=== PATIENT | female | born 2000 | race African-American/Black ===

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

== ENCOUNTER 2022-03-28 15:56 | Outpatient (CLI) | payer OTHER ==
--- NOTE | 2022-03-28 17:47 | US ---
EXAMINATION TYPE: US venous doppler duplex LE LT DATE OF EXAM: 03/28/2022 5:11 PM COMPARISON: NONE CLINICAL HISTORY: 31 weeks preg, rule out left leg blood clot. SIDE PERFORMED: Left TECHNIQUE: The lower extremity deep venous system is examined utilizing real time linear array sonog melissa with graded compression, doppler sonography and color-flow sonography. VESSELS IMAGED: Common Femoral Vein Deep Femoral Vein Greater Saphenous Vein * Femoral Vein Popliteal Vein Small Saphenous Vein * Proximal Calf Veins (* superficial vessels) Grayscale, color doppler, spectral doppler imaging performed of the deep veins of the lower extremiti es. There is normal flow, compressibility, vascular waveforms. Left Leg: Negative for DVT IMPRESSION: No evidence of deep vein thrombosis of the left lower extremity.
[2022-03-28 17:48] VITALS: BP 98/49; PULSE 76; RESP 14; TEMP 97.9
--- NOTE | 2022-03-31 08:52 | P.MSEPDOC ---
Presenting Problems - Arrival Data Date of Arrival on Unit: 03/28/22 Time of Arrival on Unit: 16:04 Mode of Transport: Portable - Complaint OB-Reason for Admission/Chief Complaint: Other Comment: numbness in left leg x2 days and getting worse Medical History - Information : 2 Para: 1 Term: 0 : 1 Abortions: Spontaneous or Elective: 0 Number of Living Children: 1 - Gestational Age Gestational Age by TAYLOR (wks/days): 31 Weeks and 0 Days - History Complications: Prior Comment: 36 week induction/ for gastroschesis Review of Systems - Review of Systems Constitutional: No problems Breast: No problems ENT: No problems Cardiovascular: No problems Respiratory: No problems Gastrointestinal: No problems Genitourinary: No problems Musculoskeletal: Muscle weakness Neurological: No problems Skin: No problems Vital Signs - Temperature Temperature: 97.9 F Temperature Source: Temporal Artery Scan - Pulse Brachial Pulse Rate: 76 Pulse Assessment Method: Automatic Cuff - Respirations Respiratory Rate: 14 Oxygen Delivery Method: Room Air O2 Sat by Pulse Oximetry: 98 - Blood Pressure Right Arm Sitting Blood Pressure: 98/49 Blood Pressure Mean: 65 Blood Pressure Source: Automatic Cuff Medical Screen Scoring - Uterine Contractions Frequency From (mins): 0 Frequency To (mins): 0 Duration From (seconds): 0 Duration To (seconds): 0 - Assessment - Baby A Baseline FHR: 120 Heart Rate - NICHD Category: Category I (Normal) NST: Reactive Physician Notification - Physician Notified Physician Notified Date: 03/28/22 Physician Notified Time: 16:21 Physician: Jazmine Correa Order Received: Yes (doppler to rule out blood clot) - Notification Comment Comment: no blood clot present Maternal Triage Index - Non-Urgent/Priority 4 Non-Urgent Priority 4: Yes Criteria Met for Priority 4: complaint not related to labor, rule out blood clot in left leg Disposition - Disposition OB Disposition: Physician follow up in office, Triage, Discharge to home, Written follow up instructions reviewed Discharge Date: 03/28/22 Discharge Time: 17:30 I agree with the RN Medical Screening Exam: Yes Case reviewed; plan agreed upon as documented in EMR&OBIX.: Yes Diagnosis: RELATED CONDITIONS, UNSPECIFIED, THIRD TRIMESTER
== END 2022-03-28 17:30 | disposition home or self-care (01) ==
LOC: FBPOP 15:56
PROVIDERS: ATTEND Obstetrics & Gynecology
DX: O12.03 Gestational edema, third trimester (principal); Z3A.31 31 weeks gestation of pregnancy
CPT/HCPCS: 59025; 93971; G0463; 99213

== ENCOUNTER 2022-05-01 12:56 | Outpatient (CLI) | payer OTHER ==
[2022-05-01 15:08] VITALS: BP 114/56; PULSE 87; RESP 16; TEMP 97.8
--- NOTE | 2022-05-04 20:12 | P.MSEPDOC ---
Presenting Problems - Arrival Data Date of Arrival on Unit: 05/01/22 Time of Arrival on Unit: 14:16 Mode of Transport: Ambulatory - Complaint OB-Reason for Admission/Chief Complaint: Possible Onset of Labor Medical History - Information : 2 Para: 1 Term: 1 : 0 Abortions: Spontaneous or Elective: 0 Number of Living Children: 1 - Gestational Age Gestational Age by TAYLOR (wks/days): 35 Weeks and 6 Days - History Complications: Prior Review of Systems - Review of Systems Constitutional: No problems Breast: No problems ENT: No problems Cardiovascular: No problems Respiratory: No problems Gastrointestinal: No problems Genitourinary: No problems Musculoskeletal: No problems Neurological: No problems Skin: No problems Vital Signs - Temperature Temperature: 97.8 F Temperature Source: Temporal Artery Scan - Pulse Right Sitting Pulse Rate: 87 Pulse Assessment Method: Automatic Cuff - Respirations Respiratory Rate: 16 Oxygen Delivery Method: Room Air - Blood Pressure Right Arm Blood Pressure: 114/56 Blood Pressure Mean: 75 Blood Pressure Source: Automatic Cuff Medical Screen Scoring - Cervical Exam Dilation (cm): 3 Effacement (%): 50 Station: -2 Membranes: Intact - Uterine Contractions Intensity: Mild Resting: Soft to palpation - Assessment - Baby A Baseline FHR: 130 Heart Rate - NICHD Category: Category I (Normal) NST: Reactive Physician Notification - Physician Notified Physician Notified Date: 05/01/22 Physician Notified Time: 14:21 Physician: Jazmine Correa Order Received: Yes (d/c home) Maternal Triage Index - Prompt/Priority 3 Prompt Priority 3: Yes Criteria Met for Priority 3: irregular contractions, reactive nst, no change in cervix after 1 hour - Non-Urgent/Priority 4 Non-Urgent Priority 4: No Disposition - Disposition OB Disposition: Physician follow up in office, Discharge to home Discharge Date: 05/01/22 Discharge Time: 14:30 I agree with the RN Medical Screening Exam: Yes Case reviewed; plan agreed upon as documented in EMR&OBIX.: Yes Diagnosis: FALSE LABOR BEFORE 37 COMPLETED WEEKS OF GEST, THIRD TRI
== END 2022-05-01 14:30 | disposition home or self-care (01) ==
LOC: FBPOP 12:56
PROVIDERS: ATTEND Obstetrics & Gynecology
DX: O47.03 False labor before 37 completed weeks of gestation, third trimester (principal); Z3A.35 35 weeks gestation of pregnancy
CPT/HCPCS: 59025; G0463; 99213

== ENCOUNTER 2022-05-03 00:55 | Outpatient (CLI) | payer OTHER ==
[2022-05-03] MEDS: LACTATED RINGERS 1,000 ML IV SCH ×2 (01:30→02:15)
[2022-05-03 01:51] LABS: Appearance,Urine Clear (Clear); Bilirubin,Urine Negative (Negative); Blood,Urine Negative (Negative); Color,Urine Light Yellow; Glucose,Urine (UA) Negative (Negative); Ketones,Urine Negative (Negative); Leukocyte Esterase,Urine Negative (Negative); Nitrite,Urine Negative (Negative); PH, Urine 6.5 (5.0-8.0); Protein,Urine Negative (Negative); Specific Gravity,Urine 1.011 (1.001-1.035); Urobilinogen,Urine <2.0 mg/dL (<2.0)
[2022-05-03 03:44] VITALS: BP 118/56; PULSE 87; RESP 18; TEMP 97.1
--- NOTE | 2022-05-04 20:14 | P.MSEPDOC ---
Presenting Problems - Arrival Data Date of Arrival on Unit: 05/03/22 Time of Arrival on Unit: 00:55 Mode of Transport: Wheelchair - Complaint OB-Reason for Admission/Chief Complaint: Possible Onset of Labor Comment: cx x2hrs Medical History - Information : 2 Para: 1 Term: 1 : 0 Abortions: Spontaneous or Elective: 0 Number of Living Children: 1 - Gestational Age Gestational Age by TAYLOR (wks/days): 36 Weeks and 1 Days - History Complications: Prior Review of Systems - Review of Systems Constitutional: No problems Breast: No problems ENT: No problems Cardiovascular: No problems Respiratory: No problems Gastrointestinal: No problems Genitourinary: No problems Musculoskeletal: No problems Neurological: No problems Skin: No problems Vital Signs - Temperature Temperature: 97.1 F Temperature Source: Temporal Artery Scan - Pulse Pulse Oximetery Pulse Rate: 87 Pulse Assessment Method: Pulse Oximetry - Respirations Respiratory Rate: 18 Oxygen Delivery Method: Room Air O2 Sat by Pulse Oximetry: 99 - Blood Pressure Right Arm Blood Pressure: 118/56 Blood Pressure Mean: 76 Blood Pressure Source: Automatic Cuff Medical Screen Scoring - Cervical Exam Dilation (cm): 3.5 Effacement (%): 50 Station: -2 - Uterine Contractions Frequency From (mins): 2 Frequency To (mins): 7 Duration From (seconds): 30 Duration To (seconds): 70 Intensity: Mild Resting: Soft to palpation - Assessment - Baby A Baseline FHR: 125 Heart Rate - NICHD Category: Category I (Normal) NST: Reactive Physician Notification - Physician Notified Physician Notified Date: 05/03/22 Physician Notified Time: 01:19 Physician: Mike Norman New Order Received: Yes - Notification Comment Comment: 0119-Dr. Norman called, report given on maternal and status, c/o. contractions and is a RCS. NST is reactive, cx every 3mins, SVE 3.5/50/-2 (SVE 3cm 2. days ago). Orders to send a UA, start an IV, and give a 1L bolus of LR. Call back with. results. 0210-Dr. Norman called with update, UA came back clean, pain is not improved. after 1L LR. Orders to give 1 more liter of LR and recheck cervix again in 1hr. Discharge home if cervix is still unchanged. Maternal Triage Index - Maternal Triage Index Presenting for scheduled procedure w/no complaint: No - Stat/Priority 1 Stat Priority 1: No - Urgent/Priority 2 Urgent Priority 2: Yes Provider Notified: Mike Norman Provider Notified Time: 01:19 Criteria Met for Priority 2: 36 1/7 wks, RCS, cx every 2-7mins Disposition - Disposition OB Disposition: Discharge to home Discharge Date: 05/03/22 Discharge Time: 03:15 I agree with the RN Medical Screening Exam: Yes Physician's MSE Comment: I have neither seen nor examined the patient. Case reviewed; plan agreed upon as documented in EMR&OBIX.: Yes Diagnosis: RELATED CONDITIONS, UNSPECIFIED, THIRD TRIMESTER
== END 2022-05-03 03:15 | disposition home or self-care (01) ==
LOC: FBPOP 00:55
PROVIDERS: ATTEND Obstetrics & Gynecology
DX: O75.89 Other specified complications of labor and delivery (principal); Z3A.36 36 weeks gestation of pregnancy
CPT/HCPCS: 59025; 96360; 81003; G0463; 99213

== ENCOUNTER 2022-05-07 18:45 | Inpatient (IN) | payer OTHER ==
[2022-05-07] MEDS ORDERED: CITRIC ACID-SODIUM CITRATE 15 ML CUP PO ONE (19:17)
[2022-05-07] MEDS: LACTATED RINGERS 1,000 ML IV SCH ×2 (19:40→22:16)
[2022-05-07 19:42] LABS: Basophils % (A) 1 %; Eosinophils # (A) 0.1 k/uL (0-0.7); Eosinophils % (A) 2 %; HCT 27.4 % (34.0-46.0); HGB 8.8 gm/dL (11.4-16.0); Hypochromasia Slight; Lymphocytes # (A) 1.3 k/uL (1.0-4.8); Lymphocytes % (A) 16 %; MCH 24.2 pg (25.0-35.0); MCHC 32.3 g/dL (31.0-37.0); MCV 74.9 fL (80.0-100.0); Mean Platelet Volume 8.9; Microcytosis Slight; Monocytes # (A) 0.8 k/uL (0-1.0); Monocytes % (A) 10 %; Neutrophils # (A) 5.4 k/uL (1.3-7.7); Neutrophils % (A) 70 %; Platelet Count 190 k/uL (150-450); Poikilocytosis Slight; RBC 3.65 m/uL (3.80-5.40); RDW 13.8 % (11.5-15.5); WBC 7.8 k/uL (4.0-11.0)
--- NOTE | 2022-05-07 19:44 | P.HPOB ---
History of Present Illness H&P Date: 05/07/22 Chief Complaint: 36-5/7 weeks, previous , spontaneous rupture of me mbranes the patient is a 21-year-old 4 para 10-1 admitted at 36-5/7 weeks as established by last menstrual period and confirmed by second trimester ultrasound. She is admitted with documented spontaneous rupture of membranes of clear fluid and reports that she has been trickling since last evening, approximately 23 hours ago. Her has been uncomplicated. She does carry a history of a previous section done for an with gastroschisis and has requested a repeat section with tubal ligation and signed consent to that effect in the office. On labor and delivery, all signs reassuring with a category 1 heart rate tracing. Group B strep status is negative. Obstetrical history: 4 para 10-1 with 2 early losses and 1 term section done for an with gastroschisis. Current statistics are listed in history present illness. EDC of 05/26/2022 was established by last menstrual period and confirmed by second trimester ultrasound. Laboratory workup demonstrates a blood type of O+ with a negative antibody screen. Rubella status is immune. Remainder of the laboratory workup was within normal limits. One hour Glucola was normal and group B strep status is not yet been reported. Gynecologic history: Unremarkable with no history of any infections to include STDs. Review of Systems review of systems is confined to history of present illness. Past Medical History Past Medical History: No Reported History History of Any Multi-Drug Resistant Organisms: None Reported Past Surgical History: No Surgical Hx Reported Smoking Status: Former smoker Medications and Allergies Home Medications Medication Instructions Recorded Confirmed Type Vit No.179/Iron/Folic 1 tab PO DAILY 05/01/22 05/07/22 History [ Tablet] Allergies Allergy/AdvReac Type Severity Reaction Status Date / Time No Known Allergies Allergy Verified 05/07/22 19:16 Exam Vital Signs Temp Pulse Resp BP Pulse Ox 05/07/22 19:08 97.8 F 110 H 18 115/67 98 Intake and Output 05/07/22 05/07/22 05/07/22 06:59 14:59 22:59 Other: Weight 66.224 kg in general, this is a well-developed, well-nourished female in no acute distress. Her heart has a regular rhythm and rate without murmur. Her lungs are clear to auscultation bilaterally in all erickson.her abdomen is gravid, nondistended, has normal active bowel sounds, soft, nontender, and without any palpable masses aside from uterine fundus. Her extremities are without any cyanosis, clubbing, or edema and are nontender to palpation bilaterally. Digital cervical examination demonstrates her cervix to be 3 cm dilated, 50% effaced, with vertex in presentation at -2 station. Spontaneous rupture of membranes has been confirmed. Assessment and Plan (1) 36 to 37 weeks gestation of Current Visit: Yes Status: Acute Code(s): JAN5056 - SNOMED Code(s): 893380188 (2) Previous section Current Visit: Yes Status: Acute Code(s): Z98.891 - HISTORY OF UTERINE SCAR FROM PREVIOUS SURGERY SNOMED Code(s): 295400751 (3) Spontaneous rupture of membranes Current Visit: Yes Status: Acute Code(s): VUT0103 - SNOMED Code(s): 728432019 (4) Prolonged rupture of membranes Current Visit: Yes Status: Acute Code(s): O42.90 - KELSEY ROM, 7TH0 BETW RUPT & ONST LABR, UNSP WEEKS OF GEST SNOMED Code(s): 65025252 Plan: given the patient's age at 21 years old and the lack of clarity as to whether insurance will cover a tubal ligation for someone her age, we will abandoned the idea intraoperative tubal ligation and seek the answers those questions in the state. We will proceed to the operating room for repeat low transverse section. The risks and complications the procedure been thoroughly discussed and the patient has understood and agreed to proceed.
[2022-05-07] MEDS ORDERED: MORPHINE SULFATE (PF) 0.3 MG/0.3 ML SYR ONE (20:05)
[2022-05-07] MEDS ORDERED: NALBUPHINE 10 MG/ML (1 ML AMP) ONE (20:05)
[2022-05-07] MEDS ORDERED: PHENYLEPHRINE-0.9% NACL SYG 1,000 MCG/10 ML SYRINGE ONE (20:05)
[2022-05-07] MEDS ORDERED: ONDANSETRON 4 MG/2 ML VIAL ONE (20:05)
[2022-05-07] MEDS ORDERED: KETOROLAC 15 MG/ML 1 ML VIAL ONE (20:05)
[2022-05-07] MEDS ORDERED: LANOLIN CREAM 5 GM TUBE TOPICAL PRN (21:13)
[2022-05-07] MEDS ORDERED: METOCLOPRAMIDE 5 MG/ML 2 ML VIAL IVP PRN (21:13)
[2022-05-07] MEDS ORDERED: diphenhydrAMINE 25 MG CAP PO PRN (21:13)
[2022-05-07] MEDS ORDERED: NALOXONE 0.4 MG/ML 1 ML VIAL IV PRN (21:13)
[2022-05-07] MEDS ORDERED: SIMETHICONE 80 MG CHEWABLE PO PRN (21:13)
[2022-05-07] MEDS ORDERED: ONDANSETRON 4 MG/2 ML VIAL IVP PRN (21:13)
[2022-05-07] MEDS ORDERED: diphenhydrAMINE 50 MG CAP PO PRN (21:13)
[2022-05-07] MEDS ORDERED: KETOROLAC 15 MG/ML 1 ML VIAL IVP PRN (21:13)
[2022-05-07] MEDS ORDERED: ZOLPIDEM 5 MG TAB PO PRN (21:13)
[2022-05-07] MEDS ORDERED: diphenhydrAMINE 50 MG/ML 1 ML VIAL IVP PRN ×2 (21:13)
[2022-05-07 21:14] LABS: Appearance,Urine Clear (Clear); Bilirubin,Urine Negative (Negative); Blood,Urine Negative (Negative); Color,Urine Yellow; Glucose,Urine (UA) Trace (Negative); Ketones,Urine Negative (Negative); Leukocyte Esterase,Urine Small (Negative); Mucus,Urine Many /hpf; Nitrite,Urine Negative (Negative); PH, Urine 6.5 (5.0-8.0); Protein,Urine 1+ (Negative); Specific Gravity,Urine 1.023 (1.001-1.035); Squamous Epithelial Cell,Urine 4 /hpf (0-4); Urobilinogen,Urine <2.0 mg/dL (<2.0); WBC,Urine 6 /hpf (0-5)
[2022-05-07] MEDS ORDERED: OXYTOCIN 30 UNITS/500 ML NS 30 UNIT in SALINE 1 500ML.BAG IV SCH (21:15)
--- NOTE | 2022-05-07 21:20 | P.OP ---
Date of Procedure: 05/07/22 Preoperative Diagnosis: #1. 36-5/7 weeks, previous sectionrequesting repeat, spontaneous rupture of membranes#2. Prolonged rupture of membranes Postoperative Diagnosis: same Procedure(s) Performed: #1. Repeat low transverse section Anesthesia: spinal Surgeon: Mike Norman [employer]andem [employer] Roller #1: Lien Paul Estimated Blood Loss (ml): 500 IV fluids (ml): 1,000 Urine output (ml): 100 Pathology: other (placenta) Condition: stable Disposition: floor Operative Findings: see dictated history and physical for preop decision making. The patient was taken the operating room where she was delivered of a viable 6 lbs. 2 oz. baby girl with Apgars of 8 at 1 minute and 9 at 5 minutes delivered in the occiput anterior position. The placenta was delivered manually, intact, and grossly normal with a grossly normal three-vessel cord. The uterus, tubes, and ovaries were entirely normal to inspection. There was a moderate amount of scarring above the fascia and through the fascia and rectus muscles. The uterus was otherwise relatively uninvolved in any scar tissue. Description of Procedure: the patient was prepped and draped in usual fashion after spinal anesthesia was administered by the anesthesiologist. A Pfannenstiel incision was made through pre-existing scar and extended into the abdominal cavity without difficulty though there was some moderate scarring above the fascia and through the fascia and rectus muscles. The bladder peritoneum was somewhat elevated and therefore was elevated, incised, and reflected distally. A 2 cm incision was made in the transverse plane of the lower uterine segment to enter the uterus at which time clear fluid was again seen. The incision was extended in both directions using the bandage scissors. The head was delivered up and through the incision where the nose and mouth were thoroughly suctioned. The remainder of the infant was delivered onto the field where the cord was doubly clamped, cut, and the passed for resuscitative measures with weight and Apgars as noted above. A segment of cord was doubly clamped, cut, and set aside should cord gases become necessary. The placenta was delivered manually and intact as noted above. The uterus was exteriorized and the interior cavity of the uterus swept of any remaining placental or membranous fragments. The margins of the incision were grasped with Krause clamps and the incision closed in 2 layers. The first layer was a running locking stitch of 0 chromic catgut followed by a running imbricating layer of 0 chromic catgut, each from margin to margin. There was some ongoing bleeding at the right angle the incision which was made hemostatic both with the Bovie and with a [id number] stitch of 0 chromic catgut. The posterior cul-de-sac was suctioned with a guard and the uterine and ovarian findings were normal as noted above. The uterus was replaced within the abdominal cavity and the gutters swept of any remaining blood, fluid, or clot. The incision was reexamined and any further small points of bleeding were made hemostatic with the Bovie. Once hemostasis was established, the parietal peritoneum was loosely reapproximated in the layer of muscles examined and made hemostatic with the Bovie. The fascia was closed with 2 running stitches of 0 Vicryl proceeding from the lateral margins to the midpoint. The subcutaneous tissues were irrigated, made hemostatic with the Bovie, and reapproximated with a running stitch of 30 plain catgut. The skin was reapproximated with a running subcuticular stitch of 4-0 Vicryl followed by half-inch Steri-Strips placed with Mastisol. Estimated blood loss for the case is presently 500 mL. There were no complications. All sponge, instrument, and needle counts were correct. Both mother and are resting comfortably in recovery.
[2022-05-08] MEDS: ACETAMINOPHEN TAB 500 MG TAB PO SCH ×4 (05:29→21:53)
[2022-05-08] MEDS: LACTATED RINGERS 1,000 ML IV SCH ×4 (05:33→16:10)
[2022-05-08] MEDS: IBUPROFEN 600 MG TAB PO SCH ×3 (05:35→19:42)
[2022-05-08 06:45] LABS: Basophils % (A) 0 %; Eosinophils # (A) 0.1 k/uL (0-0.7); Eosinophils % (A) 2 %; HCT 24.6 % (34.0-46.0); HGB 7.9 gm/dL (11.4-16.0); Hypochromasia Moderate; Lymphocytes # (A) 1.3 k/uL (1.0-4.8); Lymphocytes % (A) 15 %; MCH 24.4 pg (25.0-35.0); MCHC 32.2 g/dL (31.0-37.0); MCV 75.7 fL (80.0-100.0); Mean Platelet Volume 9.7; Monocytes # (A) 0.6 k/uL (0-1.0); Monocytes % (A) 7 %; Neutrophils # (A) 6.8 k/uL (1.3-7.7); Neutrophils % (A) 76 %; Platelet Count 164 k/uL (150-450); Poikilocytosis Slight; RBC 3.24 m/uL (3.80-5.40)
[2022-05-08] MEDS: SENNOSIDES-DOCUSATE SODIUM 1 EACH TAB PO SCH ×2 (07:44→20:01)
--- NOTE | 2022-05-08 08:00 | P.PN ---
Subjective Progress Note Date: 05/08/22 Principal diagnosis: Postoperative day #1 Slept well. Minimal pain. Minimal lochia. No complaints Objective - Vital Signs Vital signs: Vital Signs Temp 98.1 F 05/08/22 07:49 Pulse 75 05/08/22 07:49 Resp 18 05/08/22 07:49 BP 102/61 05/08/22 07:49 Pulse Ox 98 05/08/22 07:49 FiO2 Intake & Output 05/07/22 05/08/22 05/08/22 18:59 06:59 18:59 Output Total 3567 Balance -3567 Weight 66.224 kg Output: Urine 1400 Uretheral (Santos) 200 Estimated Blood Loss 2000 Output, Quantitative 167 Blood Loss - Constitutional General appearance: Present: average body habitus, cooperative - EENT Eyes: Present: PERRLA ENT: Present: hearing grossly normal - Respiratory Respiratory: bilateral: CTA - Cardiovascular Rhythm: regular - Gastrointestinal Gastrointestinal Comment(s): Incision clean and dry, intact, Steri-Strips applied. Fundus firm, midline, symmetric, 18 week size. General gastrointestinal: Present: normal bowel sounds - Integumentary Integumentary: Present: normal - Neurologic Neurologic: Present: CNII-XII intact - Musculoskeletal Musculoskeletal: Present: gait normal, strength equal bilaterally - Psychiatric Psychiatric: Present: A&O x's 3, appropriate affect, intact judgment & insight - Labs CBC & Chem 7: 05/08/22 06:26 Labs: Abnormal Lab Results - Last 24 Hours (Table) 05/07/22 05/07/22 05/08/22 Range/Units 19:20 19:35 06:26 RBC 3.65 L 3.24 L (3.80-5.40) m/uL Hgb 8.8 L 7.9 L (11.4-16.0) gm/dL Hct 27.4 L 24.6 L (34.0-46.0) % MCV 74.9 L 75.7 L (80.0-100.0) fL MCH 24.2 L 24.4 L (25.0-35.0) pg Urine Protein 1+ H (Negative) Urine Glucose (UA) Trace H (Negative) Ur Leukocyte Esterase Small H (Negative) Urine WBC 6 H (0-5) /hpf Urine Mucus Many H (None) /hpf Assessment and Plan Assessment: Doing well first postoperative day Plan: Ferrous sulfate twice daily for chronic anemia. Advanced diet and activity. Continue postoperative care. Likely discharge home tomorrow. Time with Patient: Less than 30
--- NOTE | 2022-05-08 08:52 | P.PN ---
Progress Note - Text Progress Note Date: 05/08/22 ([id number]) Anesthesia Postop day 1 Subjective: Status Post section with Duramorph. Patient seen and examined. Doing well without complaint. VAS 0. Denies nausea vomiting or pruritus. Afebrile. Gross lower extremity strength intact. Without apparent anesthetic complications. Objective: Vital signs reviewed Heart: Regular Rate Lungs: Good chest excursion Abdomen: Appears nondistended Assessment: Status post with Duramorph postop day 1 Plan: Continue current care with your medical management. Anticipated and the Duramorph around midnight tonight, you may see increased pain needs around this time.
[2022-05-08 16:13] VITALS: RESP 16
[2022-05-08] MEDS: FERROUS SULFATE 325 MG TAB PO SCH (17:14)
[2022-05-09] MEDS: ACETAMINOPHEN TAB 500 MG TAB PO SCH ×2 (02:47→08:35)
[2022-05-09] MEDS: IBUPROFEN 600 MG TAB PO SCH ×2 (04:25→05:31)
--- NOTE | 2022-05-09 07:49 | P.DS ---
Providers Date of admission: 05/07/22 19:20 Expected date of discharge: 05/09/22 Attending physician: Jazmine Correa Primary care physician: Jazmine Correa [facility] Course: This is a 21-year-old female 4 para 10-1 EDC 05/30/2022 at 36-5/7 weeks who presented with spontaneous amniorrhexis at home, clear fluid, in early labor. Plan has been for repeat section with tubal ligation. Please see dictated history and physical for details. Patient underwent a repeat low transverse section and tubal ligation without issue. Ovaries appeared normal to inspection. Eccles did well with a nuchal cord 1, liveborn female infant, scores 8 and 9 at one and 5 minutes respectively. weighed 2770 g or 6 lbs. 2 oz. Please see dictated operative note for details. This morning the patient is doing well. She is voiding, ambulating, passing flatus without difficulty. Vital signs are stable and she is afebrile. Incision is clean and dry, intact, Steri-Strips applied. Eccles infant is doing well. Patient is judged to be in very good condition for discharge home. She'll follow-up with me in the office in 2 weeks for incision check. She will use [id number] Advil or Aleve, or Motrin as needed for pain. She will call with any fevers shakes or chills, foul smelling or copious lochia, with the passage of large blood clots, or indeed with any concerns or difficulties. She is reminded no intercourse, tampons or douching. No heavy lifting, no driving, call with any issues or concerns. Assessment: Doing well second postoperative day Patient Condition at Discharge: Good Plan - Discharge Summary Discharge Rx Participant: No New Discharge Prescriptions: No Action Vit No.179/Iron/Folic [ Tablet] 1 tab PO DAILY Discharge Medication List Vit No.179/Iron/Folic [ Tablet] 1 tab PO DAILY 05/01/22 [History] Follow up Appointment(s)/Referral(s): Jazmine Correa MD [Primary Care Provider] - 2 Weeks Discharge Disposition: HOME SELF-CARE
[2022-05-09] MEDS: SENNOSIDES-DOCUSATE SODIUM 1 EACH TAB PO SCH (08:36)
[2022-05-09] MEDS: FERROUS SULFATE 325 MG TAB PO SCH (08:36)
[2022-05-09 08:44] VITALS: BP 93/53; PULSE 65; TEMP 97.7
== END 2022-05-09 11:05 | disposition home or self-care (01) | DRG 788 ==
LOC: FBPOP 18:45 → 4FBP 19:20
PROVIDERS: ADMIT Obstetrics & Gynecology; ATTEND Obstetrics & Gynecology
PROC: 10D00Z1 Extraction of Products of Conception, Low, Open Approach (ICD-10-PCS; principal; 2022-05-07 20:24)
DX: O34.211 Maternal care for low transverse scar from previous cesarean delivery (principal); O42.913 Preterm premature rupture of membranes, unspecified as to length of time between rupture and onset of labor, third trimester; O69.81X0 Labor and delivery complicated by cord around neck, without compression, not applicable or unspecified; O99.02 Anemia complicating childbirth; D64.9 Anemia, unspecified; Z87.891 Personal history of nicotine dependence; Z28.310 Unvaccinated for COVID-19; Z3A.36 36 weeks gestation of pregnancy; Z37.0 Single live birth
CPT/HCPCS: 59025; 81001; 85025; 86850; 86900; 86901; 99213

== ENCOUNTER 2023-02-02 07:48 | Outpatient (CLI) | payer OTHER ==
[2023-02-02 08:53] VITALS: BP 104/53; PULSE 74; RESP 16; TEMP 97.8
--- NOTE | 2023-02-05 13:01 | P.MSEPDOC ---
Presenting Problems - Arrival Data Date of Arrival on Unit: 02/02/23 Time of Arrival on Unit: 08:10 Mode of Transport: Ambulatory - Complaint OB-Reason for Admission/Chief Complaint: Rule Out SROM, Decreased Movement Medical History - Information : 3 Para: 2 : 1 Abortions: Spontaneous or Elective: 0 Number of Living Children: 2 - Gestational Age Gestational Age by TAYLOR (wks/days): 20 Weeks and 5 Days Review of Systems - Review of Systems Constitutional: No problems Breast: No problems ENT: No problems Cardiovascular: No problems Respiratory: No problems Gastrointestinal: No problems Genitourinary: No problems Musculoskeletal: No problems Neurological: No problems Skin: No problems Vital Signs - Temperature Temperature: 97.8 F Temperature Source: Temporal Artery Scan - Pulse Right Apical Pulse Rate: 74 Pulse Assessment Method: Auscultation - Respirations Respiratory Rate: 16 Oxygen Delivery Method: Room Air O2 Sat by Pulse Oximetry: 99 - Blood Pressure Right Arm Blood Pressure: 104/53 Blood Pressure Mean: 70 Blood Pressure Source: Automatic Cuff Medical Screen Scoring - Uterine Contractions Intensity: Absent - Assessment - Baby A Baseline FHR: 135 Heart Rate - NICHD Category: Category I (Normal) NST: Reactive Physician Notification - Physician Notified Physician Notified Date: 02/02/23 Physician Notified Time: 08:40 Physician: MATTHEW Kelly Order Received: Yes - Notification Comment Comment: home with instructions Maternal Triage Index - Non-Urgent/Priority 4 Non-Urgent Priority 4: Yes Criteria Met for Priority 4: amnisure neg. Disposition - Disposition OB Disposition: Physician follow up in office, Discharge to home, Written follow up instructions reviewed Discharge Date: 02/02/23 Discharge Time: 08:45 I agree with the RN Medical Screening Exam: Yes Physician's MSE Comment: I have neither seen nor examined the patient Case reviewed; plan agreed upon as documented in EMR&OBIX.: Yes Diagnosis: RELATED CONDITIONS, UNSPECIFIED, SECOND TRIMESTER
== END 2023-02-02 08:45 | disposition home or self-care (01) ==
LOC: FBPOP 07:48
PROVIDERS: ATTEND Obstetrics & Gynecology
DX: O26.892 Other specified pregnancy related conditions, second trimester (principal); Z3A.20 20 weeks gestation of pregnancy
CPT/HCPCS: 99213

== ENCOUNTER 2023-02-02 18:10 | Outpatient (CLI) | payer OTHER ==
[2023-02-02 18:31] LABS: Glucose,Whole Blood 137 mg/dL (70-110)
[2023-02-02 19:50] VITALS: BP 100/63; PULSE 83; RESP 16; TEMP 97
--- NOTE | 2023-02-03 08:45 | P.MSEPDOC ---
Presenting Problems - Arrival Data Date of Arrival on Unit: 02/02/23 Time of Arrival on Unit: 18:15 Mode of Transport: Wheelchair - Complaint OB-Reason for Admission/Chief Complaint: Headache, Observation/Evaluation, Other Comment: assess fht's. bp, blood sugar and assess pt. Medical History - Information : 3 Para: 2 Term: 1 : 1 Abortions: Spontaneous or Elective: 0 Number of Living Children: 2 - Gestational Age Gestational Age by TAYLOR (wks/days): 20 Weeks and 5 Days - History Complications: Prior , Other Comment: pt fell after blanking out while grocery shopping Review of Systems - Review of Systems Constitutional: No problems Breast: No problems ENT: No problems Cardiovascular: No problems Respiratory: No problems Gastrointestinal: No problems Genitourinary: No problems Musculoskeletal: No problems Neurological: No problems Skin: No problems Comment: bruise on rt forearm, states has a bad headache, dizzy and tired Vital Signs - Temperature Temperature: 97.0 F Temperature Source: Temporal Artery Scan - Pulse Right Radial Pulse Rate: 83 Pulse Assessment Method: Automatic Cuff - Respirations Respiratory Rate: 16 Oxygen Delivery Method: Room Air O2 Sat by Pulse Oximetry: 99 - Blood Pressure Right Arm Blood Pressure: 100/63 Blood Pressure Mean: 75 Blood Pressure Source: Automatic Cuff Medical Screen Scoring - Uterine Contractions Intensity: Absent - Assessment - Baby A Baseline FHR: 140 Heart Rate - NICHD Category: Category I (Normal) NST: Reactive Physician Notification - Physician Notified Physician Notified Date: 02/02/23 Physician Notified Time: 18:50 Physician: Jazmine Correa New Order Received: Yes (to be seen in er. obst. cleared. call for appt this week in office) Maternal Triage Index - Urgent/Priority 2 Urgent Priority 2: Yes Provider Notified: Jazmine Correa Provider Notified Time: 18:55 Criteria Met for Priority 2: pt fell in grocery store after blaking out. then backwards and hit head again. dizzyness and headache. assessed baby . fht's 140's . vs stable, bs 137. to e.r. to be evaluated Disposition - Disposition OB Disposition: Transfer to other dept./facility, Written follow up instructions reviewed Transferred to:: er Discharge Date: 06/16/23 Discharge Time: 18:55 I agree with the RN Medical Screening Exam: Yes Case reviewed; plan agreed upon as documented in EMR&OBIX.: Yes Diagnosis: HEADACHE * DO NOT USE *
== END 2023-02-02 19:00 | disposition home or self-care (01) ==
LOC: FBPOP 18:10
PROVIDERS: ATTEND Obstetrics & Gynecology
DX: O26.892 Other specified pregnancy related conditions, second trimester (principal); Z3A.20 20 weeks gestation of pregnancy
CPT/HCPCS: 99213

== ENCOUNTER 2023-02-02 19:02 | Emergency (ER) | payer OTHER ==
[2023-02-02 19:17] VITALS: RESP 18; TEMP 98.3
[2023-02-02] MEDS ORDERED: ACETAMINOPHEN TAB 325 MG TAB PO STA (19:41)
[2023-02-02] MEDS ORDERED: SODIUM CHLORIDE 0.9% 1,000 ML IV ONE (19:41)
--- NOTE | 2023-02-02 19:48 | ED ---
General Adult HPI - General Chief complaint: Fall Stated complaint: fall, 20 wks preg Time Seen by Provider: 02/02/23 19:25 Source: patient, RN notes reviewed Mode of arrival: wheelchair Limitations: no limitations - History of Present Illness Initial comments: 22-year-old -[place] female who is approximately 20 weeks presents the emergency department with a chief complaint of syncope. Patient reports that she was at the grocery store when she was pushing a cart and fell forward. She reports hitting her head on the cart. She reports that she woke up with someone holding her feet up. She is unsure for how long she lost consciousness. She has never had a history of this before. She is reporting feeling dizzy and having a headache at this time. Denies history of seizures or diabetes. Denies chest pain, shortness of breath, vision changes, vision loss, nausea, vomiting. She reports that she did eat something earlier today. - Related Data Home Medications Medication Instructions Recorded Confirmed Vit No.179/Iron/Folic 1 tab PO DAILY 05/01/22 02/02/23 [ Tablet] Allergies Allergy/AdvReac Type Severity Reaction Status Date / Time No Known Allergies Allergy Verified 02/02/23 19:17 Review of Systems ROS Statement: Those systems with pertinent positive or pertinent negative responses have been documented in the HPI. ROS Other: All systems not noted in ROS Statement are negative. Past Medical History Past Medical History: No Reported History History of Any Multi-Drug Resistant Organisms: None Reported Past Surgical History: Section Additional Past Surgical History / Comment(s): 2020 Past Anesthesia/Blood Transfusion Reactions: No Reported Reaction Past Psychological History: Anxiety, Depression Smoking Status: Former smoker Past Alcohol Use History: None Reported Past Drug Use History: None Reported - Past Family History Mother Additional Family Medical History / Comment(s): Heart Disease, ADHD General Exam - General Exam Comments Initial Comments: General: Alert, in no acute distress Head: atraumatic normocephalic. Eyes PERRL, EOMI intact, mucous membranes moist Respiratory: Lungs clear to auscultation bilaterally Cardiovascular: Heart rate regular rate and rhythm Abdominal: Soft without guarding or rebound Extremities: Normal inspection with full range of motion and normal capillary refill Neuroogic: alert and oriented 3, CN II-XII intact, able to ambulate with steady gait Skin: warm dry and intact with normal color Limitations: no limitations Course Vital Signs 02/02/23 02/02/23 19:13 23:40 Temperature 98.3 F Pulse Rate 78 85 Respiratory 18 18 Rate Blood Pressure 101/64 91/52 O2 Sat by Pulse 100 99 Oximetry - Reevaluation(s) Reevaluation #1: 02/02/23 23:10 Patient reevaluated. Patient still unable to provide urine sample at this time. Patient is requesting to be discharged home at this time. EKG Findings - EKG Comments: EKG Findings:: I interpreted the following: EKG performed at 19:52 rate 82 bpm normal sinus rhythm. AL interval 138, QRS duration 89, QT/QTc 367/406 Medical Decision Making - Medical Decision Making Was pt. sent in by a medical professional or institution (GRETA Burdick, [facility], urgent care, hospital, or skilled nursing...) When possible be specific @ -[No] Did you speak to anyone other than the patient for history (EMS, parent, family, police, friend...)? What history was obtained from this source @ -[No] Did you review nursing and triage notes (agree or disagree)? Why? @ -[I reviewed and agree with nursing and triage notes] Were old charts reviewed (outside hosp., previous admission, EMS record, old EKG, old radiological studies, urgent care reports/EKG's, skilled nursing records)? Report findings @ -[No old charts were reviewed] Differential Diagnosis (chest pain, altered mental status, abdominal pain women, abdominal pain men, vaginal bleeding, weakness, fever, dyspnea, syncope, headache, dizziness, GI bleed, back pain, seizure, CVA, palpatations, mental health, musculoskeletal)? @ -[not applicable] EKG interpreted by me (3pts min.). @ -[As above] X-rays interpreted by me (1pt min.). @ -[None done] CT interpreted by me (1pt min.). @ -[None done] U/S interpreted by me (1pt. min.). @ -[None done] What testing was considered but not performed or refused? (CT, X-rays, U/S, labs)? Why? @ -[None] What meds were considered but not given or refused? Why? @ -[None] Did you discuss the management of the patient with other professionals (professionals i.e. , PA, [employer], lab, RT, psych nurse, social sciences lecturer, tobacco flavorer, teacher, parcel post officer, medical case worker)? Give summary @ -[No] Was smoking cessation discussed for >3mins.? @ -[No] Was critical care preformed (if so, how long)? @ -[No] Were there social determinants of health that impacted care today? How? (Homelessness, low income, unemployed, alcoholism, drug addiction, transportation, low edu. Level, literacy, decrease access to med. care, half-way, rehab)? @ -[No] Was there de-escalation of care discussed even if they declined (Discuss DNR or withdrawal of care, Hospice)? DNR status @ -[No] What co-morbidities impacted this encounter? (DM, HTN, Smoking, COPD, CAD, Cancer, CVA, ARF, Chemo, Hep., AIDS, mental health diagnosis, sleep apnea, morbid obesity)? @ -[None] Was patient admitted / discharged? Hospital course, mention meds given and route, prescriptions, significant lab abnormalities, going to OR and other pertinent info. @ @Discharged. 22-year-old female who presents the emergency department with syncope. Patient had a thorough history and physical exam perf ormed on the ED. Physical exam is essentially unremarkable heart rate regular rate and rhythm, lungs clear to auscultation bilaterally, abdomen soft and non- tender. Patient had lab work and imaging performed which was negative. Patient was encouraged to provide a urine sample however she was unable to during the course of the ED. She verbalized that she would like to be discharged home. I discussed the results in detail with the patient verbalized understanding and all questions were addressed. Return precautions were discussed at length. Patient discharged in stable condition. Case discussed with MEETA Tinoco who agrees with plan of care. Undiagnosed new problem with uncertain prognosis? @ -[No] Drug Therapy requiring intensive monitoring for toxicity (Heparin, Nitro, Insulin, Cardizem)? @ -[No] Were any procedures done? @ -[No] Diagnosis/symptom? @ -Syncope Acute, or Chronic, or Acute on Chronic? @ -Acute Uncomplicated (without systemic symptoms) or Complicated (systemic symptoms)? @ -Uncomplicated Side effects of treatment? @ -[No] Exacerbation, Progression, or Severe Exacerbation? @ -[No] Poses a threat to life or bodily function? How? (Chest pain, USA, CA, pneumonia, PE, COPD, DKA, ARF, appy, cholecystitis, CVA, Diverticulitis, Homicidal, Suicidal, threat to staff... and all critical care pts) @ -Low likelihood - Lab Data Result diagrams: 02/02/23 20:00 02/02/23 20:00 Lab Results 02/02/23 02/02/23 02/02/23 Range/Units 20:00 20:00 20:46 WBC 6.8 (4.0-11.0) k/uL RBC 4.08 (3.80-5.40) m/uL Hgb 10.7 L (11.4-16.0) gm/dL Hct 31.6 L (34.0-46.0) % MCV 77.6 L (80.0-100.0) fL MCH 26.3 (25.0-35.0) pg MCHC 33.9 (31.0-37.0) g/dL RDW 13.6 (11.5-15.5) % Plt Count 220 (150-450) k/uL MPV 8.4 Neutrophils % 73 % Lymphocytes % 18 % Monocytes % 7 % Eosinophils % 1 % Basophils % 0 % Neutrophils # 4.9 (1.3-7.7) k/uL Lymphocytes # 1.2 (1.0-4.8) k/uL Monocytes # 0.5 (0-1.0) k/uL Eosinophils # 0.1 (0-0.7) k/uL Basophils # 0.0 (0-0.2) k/uL Sodium 132 L (137-145) mmol/L Potassium 4.3 (3.5-5.1) mmol/L Chloride 103 (98-107) mmol/L Carbon Dioxide 22 (22-30) mmol/L Anion Gap 7 mmol/L BUN 11 (7-17) mg/dL Creatinine 0.46 L (0.52-1.04) mg/dL Est GFR (CKD-EPI)AfAm >90 (>60 ml/min/1.73 sqM) Est GFR (CKD-EPI)NonAf >90 (>60 ml/min/1.73 sqM) Glucose 85 (74-99) mg/dL POC Glucose (mg/dL) 90 (70-110) mg/dL POC Glu City Secretary ID Calcium 8.6 (8.4-10.2) mg/dL Total Bilirubin 0.3 (0.2-1.3) mg/dL AST 19 (14-36) U/L ALT 18 (4-34) U/L Alkaline Phosphatase 72 (38-126) U/L Total Protein 6.9 (6.3-8.2) g/dL Albumin 3.7 (3.5-5.0) g/dL Disposition Clinical Impression: Syncope Disposition: HOME SELF-CARE Condition: Stable Instructions (If sedation given, give patient instructions): Syncope (DC) Additional Instructions: Please follow-up with EQUIPMENT ENGINEERING TECHNICIAN sometime next week Please monitor symptoms closely and increase water Please return to the nearest emergency department symptoms worsen or persist Is patient prescribed a controlled substance at d/c from ED?: No Referrals: None,Stated [Primary Care Provider] - 1-2 days Time of Disposition: 23:10
[2023-02-02 20:48] LABS: Glucose,Whole Blood 90 mg/dL (70-110)
[2023-02-02 20:50] LABS: Basophils % (A) 0 %; Eosinophils # (A) 0.1 k/uL (0-0.7); Eosinophils % (A) 1 %; HCT 31.6 % (34.0-46.0); HGB 10.7 gm/dL (11.4-16.0); Lymphocytes # (A) 1.2 k/uL (1.0-4.8); Lymphocytes % (A) 18 %; MCH 26.3 pg (25.0-35.0); MCHC 33.9 g/dL (31.0-37.0); MCV 77.6 fL (80.0-100.0); Mean Platelet Volume 8.4; Monocytes # (A) 0.5 k/uL (0-1.0); Monocytes % (A) 7 %; Neutrophils # (A) 4.9 k/uL (1.3-7.7); Neutrophils % (A) 73 %; Platelet Count 220 k/uL (150-450); RBC 4.08 m/uL (3.80-5.40); RDW 13.6 % (11.5-15.5); WBC 6.8 k/uL (4.0-11.0)
[2023-02-02 21:05] LABS: ALT 18 U/L (4-34); AST 19 U/L (14-36); African American GFR (CKD) >90 (>60 ml/min/1.73 sqM); Albumin 3.7 g/dL (3.5-5.0); Alkaline Phosphatase 72 U/L (38-126); Anion Gap 7 mmol/L; Blood Urea Nitrogen 11 mg/dL (7-17); Calcium 8.6 mg/dL (8.4-10.2); Carbon Dioxide 22 mmol/L (22-30); Chloride 103 mmol/L (98-107); Glucose 85 mg/dL (74-99); Non-African American GFR(CKD) >90 (>60 ml/min/1.73 sqM); Potassium 4.3 mmol/L (3.5-5.1); Sodium 132 mmol/L (137-145); Total Bilirubin 0.3 mg/dL (0.2-1.3); Total Protein 6.9 g/dL (6.3-8.2)
[2023-02-02 23:41] VITALS: BP 91/52; PULSE 85
== END 2023-02-02 23:41 | disposition home or self-care (01) ==
LOC: EC 19:02
DX: O26.812 Pregnancy related exhaustion and fatigue, second trimester (principal); Z86.59 Personal history of other mental and behavioral disorders; Z87.891 Personal history of nicotine dependence; Z3A.20 20 weeks gestation of pregnancy; W01.198A Fall on same level from slipping, tripping and stumbling with subsequent striking against other object, initial encounter
CPT/HCPCS: 36415; 80053; 85025; 93005; 96360; 96361; 99284

== ENCOUNTER 2023-03-19 16:11 | Outpatient (CLI) | payer OTHER ==
[2023-03-19 17:25] LABS: Amorphous Sediment,Urine Moderate /hpf; Appearance,Urine Cloudy (Clear); Bacteria,Urine Rare /hpf; Bilirubin,Urine Negative (Negative); Blood,Urine Negative (Negative); Color,Urine Yellow; Glucose,Urine (UA) Negative (Negative); Ketones,Urine Negative (Negative); Leukocyte Esterase,Urine Negative (Negative); Mucus,Urine Occasional /hpf; Nitrite,Urine Negative (Negative); Protein,Urine Negative (Negative); RBC,Urine 1 /hpf (0-5); Specific Gravity,Urine 1.025 (1.001-1.035); Squamous Epithelial Cell,Urine 1 /hpf (0-4); Urobilinogen,Urine <2.0 mg/dL (<2.0)
[2023-03-19 18:19] VITALS: BP 111/66; PULSE 108; RESP 16; TEMP 97.8
--- NOTE | 2023-03-25 13:21 | P.MSEPDOC ---
Presenting Problems - Arrival Data Date of Arrival on Unit: 03/19/23 Time of Arrival on Unit: 16:11 Mode of Transport: Ambulatory - Complaint OB-Reason for Admission/Chief Complaint: Rule Out SROM Medical History - Information : 3 Para: 2 Term: 1 : 1 Abortions: Spontaneous or Elective: 0 Number of Living Children: 2 - Gestational Age Gestational Age by TAYLOR (wks/days): 27 Weeks and 1 Days - History Complications: Prior Review of Systems - Review of Systems Constitutional: No problems Breast: No problems ENT: No problems Cardiovascular: No problems Respiratory: No problems Gastrointestinal: No problems Genitourinary: No problems Musculoskeletal: No problems Neurological: No problems Skin: No problems Vital Signs - Temperature Temperature: 97.8 F Temperature Source: Oral - Pulse Right Pulse Rate: 108 Pulse Assessment Method: Automatic Cuff - Respirations Respiratory Rate: 16 Oxygen Delivery Method: Room Air O2 Sat by Pulse Oximetry: 98 - Blood Pressure Right Arm Sitting Blood Pressure: 111/66 Blood Pressure Mean: 81 Blood Pressure Source: Automatic Cuff Medical Screen Scoring - Cervical Exam Dilation (cm): 0 Effacement (%): 0 Station: -3 Membranes: Intact - Uterine Contractions Frequency From (mins): 0 - Assessment - Baby A Baseline FHR: 140 Heart Rate - NICHD Category: Category II (Indeterminate) Physician Notification - Physician Notified Physician Notified Date: 03/19/23 Physician Notified Time: 17:03 Physician: Viola Paez New Order Received: Yes - Notification Comment Comment: dc home if UA neg Maternal Triage Index - Stat/Priority 1 Stat Priority 1: No - Urgent/Priority 2 Urgent Priority 2: Yes Provider Notified: Viola Paez Provider Notified Time: 17:03 Criteria Met for Priority 2: 27 week questionable ROM Disposition - Disposition OB Disposition: Triage, Discharge to home, Written follow up instructions reviewed Discharge Date: 03/19/23 Discharge Time: 17:35 I agree with the RN Medical Screening Exam: Yes Physician's MSE Comment: I have neither seen nor examined the patient Case reviewed; plan agreed upon as documented in EMR&OBIX.: Yes Diagnosis: MATERNAL CARE FOR PROBLEM, UNSP, THIRD * DO NOT USE *
== END 2023-03-19 17:35 | disposition home or self-care (01) ==
LOC: FBPOP 16:11
PROVIDERS: ATTEND Obstetrics & Gynecology
DX: O36.8930 Maternal care for other specified fetal problems, third trimester, not applicable or unspecified (principal); Z3A.27 27 weeks gestation of pregnancy
CPT/HCPCS: 84112; 81001; G0463; 99213

== ENCOUNTER 2023-03-25 13:27 | Outpatient (CLI) | payer OTHER ==
[2023-03-25] MEDS ORDERED: ACETAMINOPHEN TAB 500 MG TAB PO STA (14:03)
[2023-03-25 14:25] LABS: Appearance,Urine Clear (Clear); Bilirubin,Urine Negative (Negative); Blood,Urine Negative (Negative); Color,Urine Light Red; Glucose,Urine (UA) Negative (Negative); Ketones,Urine Negative (Negative); Leukocyte Esterase,Urine Negative (Negative); Nitrite,Urine Negative (Negative); PH, Urine 6.5 (5.0-8.0); Protein,Urine Trace (Negative); Specific Gravity,Urine 1.029 (1.001-1.035); Urobilinogen,Urine <2.0 mg/dL (<2.0)
[2023-03-25 15:48] VITALS: BP 93/46; PULSE 82; RESP 17; TEMP 97.3
--- NOTE | 2023-04-05 18:09 | P.MSEPDOC ---
Presenting Problems - Arrival Data Date of Arrival on Unit: 03/25/23 Time of Arrival on Unit: 13:27 Mode of Transport: Ambulatory - Complaint OB-Reason for Admission/Chief Complaint: Pain Comment: pt presents to triage with lower back pain and loss of mucous plug Medical History - Information : 3 Para: 2 Term: 2 : 0 Abortions: Spontaneous or Elective: 0 Number of Living Children: 2 - Gestational Age Gestational Age by TAYLOR (wks/days): 28 Weeks and 0 Days - History Complications: Prior Review of Systems - Review of Systems Constitutional: No problems Breast: No problems ENT: No problems Cardiovascular: No problems Respiratory: No problems Gastrointestinal: No problems Genitourinary: No problems Musculoskeletal: No problems Neurological: No problems Skin: No problems Vital Signs - Temperature Temperature: 97.3 F Temperature Source: Temporal Artery Scan - Pulse Right Brachial Pulse Rate: 82 Pulse Assessment Method: Automatic Cuff - Respirations Respiratory Rate: 17 Oxygen Delivery Method: Room Air - Blood Pressure Right Arm Blood Pressure: 93/46 Blood Pressure Mean: 61 Blood Pressure Source: Automatic Cuff Medical Screen Scoring - Cervical Exam Dilation (cm): 0 Membranes: Intact - Assessment - Baby A Baseline FHR: 130 Heart Rate - NICHD Category: Category I (Normal) NST: Reactive Physician Notification - Physician Notified Physician Notified Date: 03/25/23 Physician Notified Time: 13:53 Physician: Viola Paez New Order Received: Yes - Notification Comment Comment: UA sent, pt given oral hydration, NST reactive, pt discharged home, she has scheduled appt in office on [place] Maternal Triage Index - Maternal Triage Index Presenting for scheduled procedure w/no complaint: No - Stat/Priority 1 Stat Priority 1: No - Urgent/Priority 2 Urgent Priority 2: Yes Provider Notified: Viola Paez Provider Notified Time: 13:53 Criteria Met for Priority 2: pt presents to triage with lower back pain and loss of mucous plug - Prompt/Priority 3 Prompt Priority 3: Yes Criteria Met for Priority 3: na Disposition - Disposition OB Disposition: Triage, Discharge to home, Written follow up instructions reviewed Discharge Date: 03/25/23 Discharge Time: 14:45 I agree with the RN Medical Screening Exam: Yes Physician's MSE Comment: I have neither seen nor examined the patient Case reviewed; plan agreed upon as documented in EMR&OBIX.: Yes Diagnosis: RELATED CONDITIONS, UNSPECIFIED, THIRD TRIMESTER
== END 2023-03-25 14:45 | disposition home or self-care (01) ==
LOC: FBPOP 13:27
PROVIDERS: ATTEND Obstetrics & Gynecology
DX: O26.893 Other specified pregnancy related conditions, third trimester (principal); Z3A.28 28 weeks gestation of pregnancy
CPT/HCPCS: 59025; 81003; G0463; 99213

== ENCOUNTER 2024-07-06 17:27 | Emergency (ER) | payer OTHER ==
[2024-07-06 17:53] VITALS: BP 136/83; PULSE 73; RESP 20; TEMP 98
--- NOTE | 2024-07-06 18:17 | ED ---
General Adult HPI - General Chief complaint: Psychiatric Symptoms Stated complaint: psych eval Time Seen by Provider: 07/06/24 17:54 Source: patient, RN notes reviewed Mode of arrival: ambulatory Limitations: no limitations - History of Present Illness Initial comments: Patient is a 23-year-old female presenting to the emergency department with concerns for anxiety. Symptoms have been occurring for years. Patient has range of emotions. Patient has a history of depression. No suicidal or homicidal thoughts. No threats. Patient is not petitioned. Patient has been sleeping well. Patient sometimes eats well sometimes not perfect. No hallucinations. - Related Data Home Medications Medication Instructions Recorded Confirmed Vit No.179/Iron/Folic 1 tab PO DAILY 05/01/22 03/25/23 [ Tablet] Acetaminophen Tab [Tylenol] 1 tab PO ONCE 03/19/23 03/25/23 Allergies Allergy/AdvReac Type Severity Reaction Status Date / Time No Known Allergies Allergy Verified 07/06/24 17:52 Review of Systems ROS Statement: Those systems with pertinent positive or pertinent negative responses have been documented in the HPI. ROS Other: All systems not noted in ROS Statement are negative. Constitutional: Denies: fever Eyes: Denies: eye pain ENT: Denies: ear pain Respiratory: Denies: cough, dyspnea Cardiovascular: Denies: chest pain Psychiatric: Reports: as per HPI Past Medical History Past Medical History: No Reported History History of Any Multi-Drug Resistant Organisms: None Reported Past Surgical History: Section Additional Past Surgical History / Comment(s): 2020 Past Anesthesia/Blood Transfusion Reactions: No Reported Reaction Past Psychological History: Anxiety, Depression Smoking Status: Never smoker Past Alcohol Use History: Occasional Past Drug Use History: Marijuana - Past Family History Mother Additional Family Medical History / Comment(s): Heart Disease, ADHD General Exam Limitations: no limitations General appearance: alert, in no apparent distress Head exam: Present: normocephalic Eye exam: Present: normal appearance Respiratory exam: Present: normal lung sounds bilaterally Cardiovascular Exam: Present: regular rate, normal rhythm GI/Abdominal exam: Present: soft. Absent: tenderness Extremities exam: Present: normal inspection Neurological exam: Present: alert Psychiatric exam: Present: normal affect, normal mood Skin exam: Present: normal color Course Vital Signs 07/06/24 17:48 Temperature 98 F Pulse Rate 73 Respiratory 20 Rate Blood Pressure 136/83 O2 Sat by Pulse 98 Oximetry Medical Decision Making - Medical Decision Making Was pt. sent in by a medical professional or institution (, [facility], BIOMEDICAL SCIENTIST, urgent care, hospital, or penitentiary...) When possible be specific @ -No Did you speak to anyone other than the patient for history (EMS, parent, family, police, friend...)? What history was obtained from this source @ -No Did you review nursing and triage notes (agree or disagree)? Why? @ -I reviewed and agree with nursing and triage notes Were old charts reviewed (outside hosp., previous admission, EMS record, old EKG, old radiological studies, urgent care reports/EKG's, penitentiary records)? Report findings @ -No old charts were reviewed Differential Diagnosis (chest pain, altered mental status, abdominal pain women, abdominal pain men, vaginal bleeding, weakness, fever, dyspnea, syncope, headache, dizziness, GI bleed, back pain, seizure, CVA, palpatations, mental health, musculoskeletal)? @ -Differential Mental Health Depression, anxiety, bipolar, psychosis, schizophrenia, borderline personality, situational depression, adjustment disorder, behavioral disorder, brain tumor, malingering, substance abuse, encephalopathy, medication reaction, dementia, hypothyroidism, degenerative neurologic disorder, lupus.... This is not meant to be all-inclusive list EKG interpreted by me (3pts min.). @ -As above X-rays interpreted by me (1pt min.). @ -None done CT interpreted by me (1pt min.). @ -None done U/S interpreted by me (1pt. min.). @ -None done What testing was considered but not performed or refused? (CT, X-rays, U/S, labs)? Why? @ -None What meds were considered but not given or refused? Why? @ -None Did you discuss the management of the patient with other professionals (professionals i.e. , [facility], BIOMEDICAL SCIENTIST, lab, RT, psych nurse, social media coordinator, probate lawyer, teacher, chairman & chief executive officer, assistant case manager)? Give summary @ -No Was smoking cessation discussed for >3mins.? @ -No Was critical care preformed (if so, how long)? @ -No Were there social determinants of health that impacted care today? How? (Homelessness, low income, unemployed, alcoholism, drug addiction, transportation, low edu. Level, literacy, decrease access to med. care, long-term, rehab)? @ -No Was there de-escalation of care discussed even if they declined (Discuss DNR or withdrawal of care, Hospice)? DNR status @ -No What co-morbidities impacted this encounter? (DM, HTN, Smoking, COPD, CAD, Cancer, CVA, ARF, Chemo, Hep., AIDS, mental health diagnosis, sleep apnea, morbid obesity)? @ -None Was patient admitted / discharged? Hospital course, mention meds given and route, prescriptions, significant lab abnormalities, going to OR and other pertinent info. @ -Patient presents with concerns for strong emotions. Patient admits to having anxiety and depression. Patient does not have suicidal or homicidal thoughts. Patient does not feel she needs to be hospitalized and I do agree with this. Patient will not benefit for her hospitalization screening and will be discharged with follow-up with primary care physician and therapist. Paperwork and numbers provided. Undiagnosed new problem with uncertain prognosis? @ -No Drug Therapy requiring intensive monitoring for toxicity (Heparin, Nitro, Insulin, Cardizem)? @ -No Were any procedures done? @ -No Diagnosis/symptom? @ -Anxiety Acute, or Chronic, or Acute on Chronic? @ -Acute Uncomplicated (without systemic symptoms) or Complicated (systemic symptoms)? @ -Default Side effects of treatment? @ -No Exacerbation, Progression, or Severe Exacerbation? @ -No Poses a threat to life or bodily function? How? (Chest pain, [place], NH, pneumonia, PE, COPD, DKA, ARF, appy, cholecystitis, CVA, Diverticulitis, Homicidal, Suicidal, threat to staff... and all critical care pts) @ -No Disposition Clinical Impression: Acute anxiety Disposition: HOME SELF-CARE Condition: Stable Instructions (If sedation given, give patient instructions): Anxiety (ED), Mood Disorders (ED), Depression (ED) Additional Instructions: Please do follow-up with your primary care physician in the next couple of days for recheck. Please also follow-up with therapist, she provided. Return for thoughts of self-harm, worsening symptoms or any other concerns. Is patient prescribed a controlled substance at d/c from ED?: No Referrals: Aniyah Vallecillo MD [STAFF PHYSICIAN] - 1-2 days Forms: Outpatient Counseling, Outpatient Therapy List, Area PCPs Time of Disposition: 18:17
== END 2024-07-06 18:28 | disposition home or self-care (01) ==
LOC: EC 17:27
DX: F41.9 Anxiety disorder, unspecified (principal)
CPT/HCPCS: 82075; 99284